=== PATIENT | male | born 1950 | race Caucasian/White ===

== ENCOUNTER 2017-03-30 08:42 | Emergency (ER) | payer OTHER ==
[~2017-03-30] VITALS: Ht 177.8 cm; Wt 92.9 kg
[~2017-03-30 08:42] MED LIST: NAPROSYN500 MG PO; NAPROXEN500 MG PO; NEURONTIN300 MG PO; PERCOCET 5/31 TABLET PO; TYLENOL WITH C1 EACH PO
[2017-03-30] MEDS ORDERED: PERCOCET 5/31 TABLET PO (11:18)
[2017-03-30 11:29] VITALS: BP 127/85
== END 2017-03-30 11:30 | disposition home or self-care (01) ==
LOC: EME 08:42 → EXP 08:42
DX: R51 Headache (principal); Z85.841 Personal history of malignant neoplasm of brain; Z85.72 Personal history of non-Hodgkin lymphomas; Z86.73 Personal history of transient ischemic attack (TIA), and cerebral infarction without residual deficits; I10 Essential (primary) hypertension
CPT/HCPCS: 70450; 99281; 99283